=== PATIENT | female | born 1940 | race Caucasian/White ===

== ENCOUNTER 2018-03-06 12:51 | Inpatient (IN) | payer MEDICARE, BC ==
[2018-03-06] MEDS ORDERED: Nitroglycerin 0.4 MG TAB (25 Tab Bottle) SL PRN (13:19)
[2018-03-06 13:47] LABS: #Eosinphils 0.1 thou/uL (0.0-0.7); #Monocytes 0.5 thou/uL (0.11-0.59); %Basophils 0.1 % (0.0-1.0); %Eosinophils 0.7 % (0.0-10.0); %Lymphocytes 13.6 % (21.0-51.0); %Monocytes 6.1 % (0.0-10.0); %Neutrophils 79.6 % (42.0-75.0); Hemoglobin 13.8 g/dL (12.0-16.0); Mean Corpuscular HGB CONC 35.1 g/dL (32.0-36.0); Mean Corpuscular Hemoglobin 32.7 pg (27.0-31.0); Mean Corpuscular Volume 93.2 fl (81.0-99.0); Mean Platelet Volume 8.2 fL (7.4-10.4); Platelet Count 232 thou/uL (130-400); RBC Distribution Width 11.1 % (11.5-14.5); Red Blood Cell (RBC) Count 4.22 mill/uL (4.20-5.40); White Blood Cell (WBC) Count 7.6 thou/uL (4.8-10.8)
[2018-03-06 14:07] LABS: ALT (SGPT) Less than 7 U/L (8-55); AST (SGOT) 38 U/L (5-34); Albumin 4.1 g/dL (3.4-4.8); Alkaline Phosphatase 64 U/L (40-150); Anion Gap 15 mmol/L (10-20); BUN (Urea Nitrogen) 9 mg/dL (9.8-20.1); Bilirubin, Total 0.6 mg/dL (0.2-1.2); Calc. Creatinine Clearance 0 mL/min (70-130); Calcium 9.2 mg/dL (7.8-10.44); Carbon Dioxide 21 mmol/L (23-31); Chloride 93 mmol/L (98-107); Estimated GFR-MDRD 69; Globulin 2.4 g/dL (2.4-3.5); Glucose 152 mg/dL (83-110); Potassium 4.1 mmol/L (3.5-5.1); Protein, Total 6.5 g/dL (6.0-8.3); Sodium 125 mmol/L (136-145)
--- NOTE | 2018-03-06 14:43 | RAD ---
CHEST 2 VIEWS: HISTORY: Chest pain. FINDINGS: Cardiac silhouette and pulmonary vasculature are unremarkable. Mediastinum midline with aortic calci fication. No confluent airspace consolidation, pneumothorax, or pleural fluid. IMPRESSION: Atherosclerosis. No active cardiopulmonary abnormalities are otherwise demonstrated. POS: [facility]
[2018-03-06 15:25] LABS: CKMB 26.7 ng/mL (0-6.6); Troponin I 5.549 ng/mL (< 0.028)
[2018-03-06] MEDS ORDERED: Enoxaparin Sodium 60 MG/0.6 ML SYRINGE SC SCH (17:00)
[2018-03-06] MEDS ORDERED: Communication Order-Pharmacy FS SCH (20:00)
[2018-03-06] MEDS: Donepezil HCl 5 MG TAB PO SCH (20:16)
--- NOTE | 2018-03-06 21:33 | CON ---
DATE OF CONSULTATION: 03/06/2018 DATE OF ADMISSION: 03/06/2018 INDICATION FOR CONSULTATION: A 77-year-old female with elevated cardiac enzymes. HISTORY OF PRESENT ILLNESS: This very pleasant 77-year-old female, woke up this morning, having a di scomfort in both arms and the upper back between the shoulder blades. She also had some nausea assoc iated with it. She took 2 Tylenol or Aleve, it did not relieve the pain. She presented to her [facility] doctor. At the time she arrived there, she had no further pain, but she was advised to be admitte d to the hospital for further evaluation due to her risk factors of hypertension and her age as well as a history of Violette-Ramirez tear. She presented to the hospital and enzymes show a troponin I of 5 .5 with an MB of 26.7. At this time, she remains completely asymptomatic and her symptoms had actual ly resolved by the time she was seen in the primary care physician's office. Her EKG does not show a ny acute changes and she is very pleasant and comfortable and says that she is actually back to annette l. Her risk factors include hypertension. PAST MEDICAL HISTORY: Significant for hypertension, hypothyroidism, some dementia and depression. S he has had a history of Violette-Ramirez tear in the past and osteoarthritis and possible gastroesophage al reflux disease with an ulcer. SOCIAL HISTORY: She is single, but has 2 children. They are in the 50s with no heart disease. She has a partner, gentleman that she has been together for many years. She has no tobacco abuse. She h as occasional beer in the evenings. 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 FAMILY HISTORY: Noncontributory. ALLERGIES: PENICILLIN which cause her to have a rash. MEDICATIONS: Prior to admission included sertraline, Bystolic 10 mg a day, Namenda XR 28 mg daily, l evothyroxine 0.1 mg daily, donepezil 5 mg 1 q.p.m., Prevagen Extra Strength every day, lansoprazole 3 0 mg daily. At this time, she has been placed on aspirin as well as her Aricept, levothyroxine, delio ntine, Bystolic, Protonix, Zoloft, nitroglycerin p.r.n. We will also start her on DVT prophylaxis do se of Lovenox. REVIEW OF SYSTEMS: Twelve point review of systems unremarkable. She wears glasses. Otherwise, she has had one episode of syncope several years ago of uncertain etiology. Otherwise, her 12 point revi ew of system unremarkable, so was noted in the history of present illness. PHYSICAL EXAMINATION: GENERAL: Reveals a very pleasant, alert female who is in no acute distress at this time. HEENT: Shows head to be normocephalic and atraumatic. Carotid pulses are present. There were no br uits noted. There is no JVD. The thyroid is not enlarged. Oral mucosa was pink and moist. CHEST: Clear. There are no rales, rhonchi or wheezing. CARDIOVASCULAR: Exam reveals a regular rate and rhythm with a normal S1, S2. There is no S3, S4. T here were no significant murmurs, heaves, thrills, bruits or rubs noted. ABDOMEN: Soft and nontender with positive bowel sounds. No organomegaly or masses noted. Femoral p ulses are present. EXTREMITIES: Showed no clubbing, cyanosis or edema. Pedal pulses are present. NEUROLOGIC: The patient is intact. SKIN: Warm and dry. LABORATORY: EKG shows a normal sinus rhythm with decreased R-wave progression in V1 through V3, but no ST segment elevation to indicate ischemia. Her cardiac enzymes are noted above. Her chest x-ray is unremarkable. At this time, I will repeat a second set of enzymes at this time as it has already been several hours since her last troponin I was obtained. This is significantly elevated. I have s uggested to the patient that she may need to undergo a cardiac catheterization despite being asymptom atic at this time. Otherwise, I suggested she undergo a cardiac catheterization tomorrow morning as a definitive tool to evaluate for underlying coronary artery disease. Since her enzymes are more adam n just nonspecific, they are certainly specific for myocardial infarction with a troponin I of 5.5. IMPRESSION/PLAN: 1. Non-ST segment elevation myocardial infarction. We will plan for cardiac catheterization later t becki or in the morning. 2. Hyponatremia. We will leave this up to discretion of the primary service. 3. History of hypertension. This is under good control at this time. We will continue her present medications. 4. History of Violette-Ramirez tear. This does not appear to be the case at this time, but she did hav e some nausea but did not have any severe vomiting that would indicate this. Certainly, her symptoms are very suspicious for underlying coronary artery disease. We will be more than happy to continue to follow this patient with you throughout her course. She also had an echocardiogram ordered. We w ill evaluate that. 5. The decision I did discuss with her about the cardiac catheterization later today or tomorrow; an d I discussed the procedure and the risks to include bleeding, infection, possibility of myocardial i nfarction, CVA, renal insufficiency, allergic contrast reaction, even the possibility of . She understands and agrees to proceed. We will plan for tomorrow morning unless she becomes more unstabl e or the enzymes continue to increase.
[2018-03-06 23:09] LABS: CKMB 14.6 ng/mL (0-6.6); Critical Call CKMBM RESULT DECREASING; Critical Call Chem Troponin I RESULT DECREASING; Troponin I 4.591 ng/mL (< 0.028)
--- NOTE | 2018-03-06 23:55 | HP ---
DATE OF ADMISSION: 03/07/2018 CHIEF COMPLAINT: Elevated blood pressure and chest pain. HISTORY OF PRESENT ILLNESS: This is a 77-year-old female patient with a history of hypertension, dementia, hypothyroidism, history of a GI bleed who presented to my office with one day of right-sided shoulder and upper arm pain, upper back pain, nausea, and elevated blood pressure. Patient states that she has been in her usual state of health until the symptoms developed this morning as she was feeling fine last night. She had sudden onset of nausea and upper arm anterior chest and upper back pain. The symptoms resolved over time, but she presented to my office because of elevation in her blood pressure at home. In the office, her blood pressure was initially 184/66. She was given one dose of oral clonidine 0.1 mg, which brought her blood pressure down to 145/85. Her EKG in the office did reveal some flattening of her T-waves in the inferior leads. Her symptoms resolved, but she was admitted to the hospital for further evaluation. When she arrived at the floor, her labs were done and she was found to have elevation in her troponin. She is now being admitted for further evaluation and treatment for her chest pain and rule out non-ST elevation MT. PAST MEDICAL HISTORY: Hypertension, history of a gastrointestinal bleed secondary to Violette-Ramirez tear. She has been followed by Dr. Guerrero in the past , history of chronic back pain followed by Dr. Herbert, history of hypercholesterolemia, hypothyroidism. PAST SURGICAL HISTORY: Appendectomy, x3, cholecystectomy, hysterectomy, L2 through L4 laminectomy, history of a tonsillectomy, EGD in 2016 for gastric ulcers. MEDICATIONS: Include Prevagen 10 mg daily, Namenda XR 28 mg daily, sertraline 50 mg daily, levothyroxine 100 mg daily, Aricept 5 mg daily, Prevacid 30 mg daily, Bystolic 10 mg daily. She has not been on aspirin due to her history of a GI bleed. ALLERGIES: PENICILLIN and NEMBUTAL. FAMILY HISTORY: Father at 86 due to an accident. Mother at 84 due to her old age. SOCIAL HISTORY: She is . No smoking. Occasional alcohol, but trying to decrease. 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 REVIEW OF SYSTEMS: As stated per the history of present illness. General: She denies any recent fevers, chills, or recent illness. HEENT: Denies any cough, congestion, bloody noses. Cardiac: As stated per the history of present illness. She denies palpitations. Pulmonary: Denies cough or shortness of breath. Gastrointestinal: No abdominal pain, some nausea and vomiting, diarrhea, which is resolved. Again, she does have history of a Violette-Ramirez tear. Genitourinary: No dysuria or hematuria. Neurologic: History of dementia. No recent seizures, syncope. Psychiatric: History of depression, but stable on sertraline. PHYSICAL EXAMINATION: VITAL SIGNS: Temperature 98.0, pulse is 69, respirations 18, blood pressure 152 /67, pulse ox is 98% on room air. GENERAL: She is awake and alert, in no acute distress. Speech is clear. NECK: Supple. No JVD, adenopathy, or bruits. HEART: Regular rate and rhythm. LUNGS: Clear bilaterally. ABDOMEN: Soft. EXTREMITIES: With no edema. NEUROLOGIC: Cranial nerves II-XII are intact. LABORATORY DATA: EKG in the office revealed nonspecific changes. Chest x-ray showed atherosclerosis, no acute findings. White blood cell count 7600, hemoglobin and hematocrit 13.8 and 39.4, platelets are 232. Sodium 125, potassium 4.0, chloride 93, CO2 of 21, BUN and creatinine 9 and 0.89. Serum glucose of 152. AST and ALT are low. First troponin is elevated at 5.549. ASSESSMENT AND PLAN: This is a 77-year-old female with medical problems as described above and risk factors including age, hypertension, hypercholesterolemia presented to my office with complaints of atypical symptoms , but now with elevated troponin consistent with a non-ST elevation myocardial infarction. Dr. Estes has seen the patient in evaluation, is made a plan for either cardiac catheterization tonight or in the morning. 1. Hypertension. We will continue Bystolic and monitor closely. 2. Coronary artery disease. Dr. Estes already started Lovenox. 3. Hyperlipidemia. We will follow and likely started on a statin. 4. Dementia. We will continue her home meds. 5. Hyponatremia. We will monitor and recheck labs in the morning. 6. History of gastrointestinal bleed. We will continue her PPI, especially while she is on anticoagulation. CHANTAL
[2018-03-07 04:51] LABS: Anion Gap 13 mmol/L (10-20); BUN (Urea Nitrogen) 11 mg/dL (9.8-20.1); Calc. Creatinine Clearance 58 mL/min (70-130); Calcium 9.2 mg/dL (7.8-10.44); Carbon Dioxide 25 mmol/L (23-31); Chloride 96 mmol/L (98-107); Estimated GFR-MDRD 79; Glucose 90 mg/dL (83-110); Potassium 3.5 mmol/L (3.5-5.1); Sodium 130 mmol/L (136-145)
[2018-03-07] MEDS: Nebivolol HCl 5 MG TAB PO SCH (06:11)
[2018-03-07] MEDS: Levothyroxine Sodium 100 MCG TAB PO SCH (06:12)
[2018-03-07] MEDS ORDERED: Lidocaine 1% (PF) 30 ML VIAL ONE (08:09)
[2018-03-07] MEDS ORDERED: Heparin 10,000 UNITS/1 ML VIAL ONE (08:09)
[2018-03-07] MEDS ORDERED: Verapamil 5 MG/2 ML VIAL ONE (08:09)
[2018-03-07] MEDS ORDERED: Nitroglycerin 100MG/250ML BOT 250 ML ONE (08:09)
--- NOTE | 2018-03-07 08:18 | PRG ---
DATE OF SERVICE: 03/07/2018 SUBJECTIVE: The patient is feeling fine. She denies any chest pain. She does admit to some upper b ack pain. No nausea, no shortness of breath, no palpitations. Evaluation by Dr. Estes was reviewed. PHYSICAL EXAMINATION: VITAL SIGNS: Temperature 98.4, pulse of 55-59, respirations 18, blood pressure 133/63, pulse ox is 9 8% on room air. GENERAL: She is awake and alert, in no acute distress. Speech is clear. NECK: Supple. HEART: Regular rate and rhythm. LUNGS: Clear. EXTREMITIES: With no edema. LABORATORY DATA: Sodium up to 130, potassium 3.5, chloride 96, CO2 of 25, BUN and creatinine are 11 and 0.72, serum glucose is 90. Troponins #1 is 5.9, troponin #2 is 6.05, troponin #3 is 4.591. Hemo globin and hematocrit are stable at 13.0 and 36.7. X-RAY FINDINGS: Chest x-ray showed atherosclerosis, but no acute disease. ASSESSMENT AND PLAN: This is a 77-year-old female patient admitted with a non-ST elevation myocardia l infarction. Plan per Dr. Estes for cardiac catheterization this morning. 1. Coronary artery disease. I will continue beta elvis and start statin therapy. I will discuss with Dr. Estes and patient about risk of low dose aspirin due to her history of her gastrointestinal b leed. 2. History of gastrointestinal bleed. We will encourage to avoid any NSAIDs as well as avoid alcoho l due to history of gastrointestinal bleed from Violette-Ramirez tear. 3. Hypertension is stable on current regimen. We will continue Bystolic. 4. Dementia, stable. Continue outpatient management. 5. Hyponatremia is improved.
[2018-03-07 08:43] VITALS: BMI 21.2
[2018-03-07] MEDS ORDERED: Midazolam HCl 2 mg/2 ml Vial ONE ×2 (08:45→09:12)
[2018-03-07] MEDS ORDERED: Enoxaparin Sodium 60 MG/0.6 ML SYRINGE SC SCH (09:00)
[2018-03-07] MEDS ORDERED: Non-Formulary Item 1 EACH (Nebivolol Hcl [Bystolic] 10 MG) PO SCH (09:00)
[2018-03-07] MEDS ORDERED: Prevnar 13-Val Conj/PF 0.5 ML SYRINGE IM ONE (09:00)
[2018-03-07] MEDS ORDERED: Aspirin 81 mg Enteric Coated Tablet PO SCH (09:00)
[2018-03-07] MEDS ORDERED: TICAGRELOR 90 MG TABLET ONE (10:17)
[2018-03-07] MEDS ORDERED: Lisinopril 5 MG TAB PO SCH (10:45)
[2018-03-07] MEDS ORDERED: Amlodipine 5 MG TAB PO SCH (11:00)
[2018-03-07] MEDS: Donepezil HCl 5 MG TAB PO SCH (20:48)
[2018-03-07] MEDS: TICAGRELOR 90 MG TABLET PO SCH (20:48)
[2018-03-07] MEDS ORDERED: Atorvastatin Calcium 10 MG TAB PO SCH (21:00)
[2018-03-08 04:37] LABS: #Eosinphils 0.2 thou/uL (0.0-0.7); #Monocytes 0.6 thou/uL (0.11-0.59); #Neutrophils 4.3 thou/uL (1.40-6.50); %Basophils 0.5 % (0.0-1.0); %Eosinophils 3.3 % (0.0-10.0); %Monocytes 9.9 % (0.0-10.0); %Neutrophils 70.4 % (42.0-75.0); Hemoglobin 12.5 g/dL (12.0-16.0); Mean Corpuscular HGB CONC 35.8 g/dL (32.0-36.0); Mean Corpuscular Hemoglobin 32.7 pg (27.0-31.0); Mean Corpuscular Volume 91.3 fl (81.0-99.0); Mean Platelet Volume 7.9 fL (7.4-10.4); Platelet Count 188 thou/uL (130-400); RBC Distribution Width 11.1 % (11.5-14.5); Red Blood Cell (RBC) Count 3.84 mill/uL (4.20-5.40); White Blood Cell (WBC) Count 6.2 thou/uL (4.8-10.8)
[2018-03-08 05:04] LABS: ALT (SGPT) Less than 7 U/L (8-55); AST (SGOT) 22 U/L (5-34); Albumin 3.5 g/dL (3.4-4.8); Alkaline Phosphatase 51 U/L (40-150); Anion Gap 11 mmol/L (10-20); BUN (Urea Nitrogen) 6 mg/dL (9.8-20.1); Bilirubin, Total 0.8 mg/dL (0.2-1.2); Calc. Creatinine Clearance 60 mL/min (70-130); Calcium 8.7 mg/dL (7.8-10.44); Carbon Dioxide 24 mmol/L (23-31); Chloride 94 mmol/L (98-107); Estimated GFR-MDRD 86; Globulin 2.1 g/dL (2.4-3.5); Glucose 79 mg/dL (83-110); Potassium 3.2 mmol/L (3.5-5.1); Protein, Total 5.6 g/dL (6.0-8.3); Sodium 126 mmol/L (136-145)
[2018-03-08] MEDS: Levothyroxine Sodium 100 MCG TAB PO SCH (05:29)
[2018-03-08] MEDS ORDERED: Atorvastatin Calcium 10 MG TAB PO SCH (07:37)
[2018-03-08] MEDS ORDERED: Amlodipine 5 MG TAB PO SCH (09:00)
[2018-03-08] MEDS: Amlodipine 5 MG TAB PO SCH (09:13)
[2018-03-08] MEDS: Nebivolol HCl 5 MG TAB PO SCH (09:14)
[2018-03-08] MEDS: Lisinopril 5 MG TAB PO SCH (09:14)
[2018-03-08] MEDS: TICAGRELOR 90 MG TABLET PO SCH ×2 (09:14→20:14)
--- NOTE | 2018-03-08 11:31 | PRG ---
DATE OF SERVICE: 03/08/2018 SUBJECTIVE: The patient is feeling better. She walked with cardiac rehab today. Denies chest pain. Denies shortness of breath. Denies nausea. Her right shoulder and upper back pain have resolved. She states she has a good appetite. OBJECTIVE: VITAL SIGNS: Temperature 98.5, pulse of 60, respirations 17, blood pressure 129/63, pulse ox is 98% on room air. GENERAL: She is awake and alert. She is smiling, in no acute distress. HEENT: Mucosa is moist. NECK: Supple. HEART: Regular rate and rhythm. LUNGS: Clear. EXTREMITIES: With no edema. LABORATORY DATA: Sodium 126, potassium 3.2, chloride 94, CO2 of 24, BUN and creatinine are 6 and 0.6 7. AST and ALT are normal. Albumin of 3.5. ASSESSMENT AND PLAN: This is a 77-year-old female status post non-ST elevation myocardial infarction , status post stent placement to left anterior descending. 1. Coronary artery disease. Symptomatically feeling better, started on antiplatelets, statin, alrea dy on beta elvis. Further plan per Cardiology. 2. Initiating cardiac rehabilitation. 3. Hypertension, better control. 4. Dementia. We will continue her medications. 6. Hyponatremia. I will place on fluid restriction and continue to monitor.
[2018-03-08] MEDS: Donepezil HCl 5 MG TAB PO SCH (20:14)
[2018-03-08] MEDS ORDERED: Atorvastatin Calcium 40 MG TAB PO SCH (21:00)
[2018-03-09 05:18] LABS: Anion Gap 13 mmol/L (10-20); BUN (Urea Nitrogen) 13 mg/dL (9.8-20.1); Calc. Creatinine Clearance 60 mL/min (70-130); Calcium 9.3 mg/dL (7.8-10.44); Carbon Dioxide 22 mmol/L (23-31); Chloride 99 mmol/L (98-107); Estimated GFR-MDRD 84; Glucose 98 mg/dL (83-110); Potassium 3.4 mmol/L (3.5-5.1); Sodium 131 mmol/L (136-145)
[2018-03-09] MEDS: Levothyroxine Sodium 100 MCG TAB PO SCH (05:45)
[2018-03-09] MEDS: TICAGRELOR 90 MG TABLET PO SCH (08:38)
[2018-03-09] MEDS: Nebivolol HCl 5 MG TAB PO SCH (08:38)
[2018-03-09] MEDS: Amlodipine 5 MG TAB PO SCH (08:38)
[2018-03-09] MEDS: Lisinopril 5 MG TAB PO SCH (08:39)
[2018-03-09] MEDS ORDERED: Lisinopril 5 MG TAB PO SCH (09:48)
[2018-03-09] MEDS ORDERED: Lisinopril 10 MG TAB PO SCH ×3 (10:00→21:00)
--- NOTE | 2018-03-09 11:49 | PRG ---
DATE OF SERVICE: 03/09/2018 SUBJECTIVE: The patient continues to feel better. She is walking with therapy. Denies chest pain. Denies shortness of breath. Denies upper back pain or shoulder pain. She states she has a good reed etite. She wants to go home. Tolerating medications without side effects. OBJECTIVE: VITAL SIGNS: Temperature 97.6, pulse of 62-96, respirations 13, blood pressure 164/68, pulse ox is 9 6% on room air. GENERAL: She is awake and alert, in no acute distress. Speech is clear and fluent. HEENT: Mucosa is moist. NECK: Supple. No bruit. HEART: Regular rate and rhythm without murmurs. LUNGS: Clear bilaterally. ABDOMEN: Soft. EXTREMITIES: With no edema, 2+ peripheral pulses bilaterally. LABORATORY DATA: Reviewed. Sodium 131, potassium 3.4, chloride 99, CO2 of 22, BUN and creatinine 13 and 0.68. Serum glucose of 98. Cardiac enzymes reviewed. ASSESSMENT AND PLAN: This is a 77-year-old female admitted with a non-ST elevation myocardial infarc tion, now status post stent placement to left anterior descending artery. 1. Coronary artery disease, symptomatic, feeling better. Continuing Brilinta, aspirin, statin, beta elvis, MARCIA inhibitor. Further plan per Cardiology and home as per Cardiology. 2. Hypertension. I will increase lisinopril. Continue amlodipine and Bystolic as well. 3. Hyponatremia is improved with fluid restriction. I will continue to monitor as outpatient. 4. Dementia, stable. 5. Disposition arrangements being made for outpatient cardiac rehabilitation. Family is asking abou t diet and exercise. I had discussion about that as well as continuing outpatient cardiac rehab for further follow up. Home when okay with Cardiology.
[2018-03-09 12:32] VITALS: TEMP 97.5
[2018-03-09 14:10] VITALS: BP 153/66
[2018-03-10] MEDS ORDERED: Lisinopril 10 MG TAB PO SCH (09:00)
--- NOTE | 2018-03-10 12:47 | EKG ---
Test Reason : Blood Pressure : / mmHG Vent. Rate : 056 BPM Atrial Rate : 056 BPM P-R Int : 246 ms QRS Dur : 074 ms QT Int : 628 ms P-R-T Axes : 044 007 147 degrees QTc Int : 606 ms Sinus bradycardia with 1st degree A-V block Possible Inferior infarct , age undetermined T wave abnormality, consider anterolateral ischemia Prolonged QT Abnormal ECG When compared with ECG of 07-MAR-2018 11:47, (Unconfirmed) T wave inversion now evident in Lateral leads QT has lengthened Confirmed by SARAH WILLSON M.D. ([id number]), news videotape editor PINKY COSTELLO ([id number]) on 03/10/2018 12:46:56 PM Referred By: [place] Confirmed By:SARAH WILLSON M.D.
== END 2018-03-09 14:11 | disposition home or self-care (01) | DRG 247 ==
LOC: 2NO 12:51
PROVIDERS: ADMIT Family Medicine; ATTEND Family Medicine
PROC: 027034Z Dilation of Coronary Artery, One Artery with Drug-eluting Intraluminal Device, Percutaneous Approach (ICD-10-PCS; principal; 2018-03-07)
PROC: 4A023N7 Measurement of Cardiac Sampling and Pressure, Left Heart, Percutaneous Approach (ICD-10-PCS; 2018-03-07)
PROC: B2111ZZ Fluoroscopy of Multiple Coronary Arteries using Low Osmolar Contrast (ICD-10-PCS; 2018-03-07)
DX: I21.4 Non-ST elevation (NSTEMI) myocardial infarction (principal); E87.1 Hypo-osmolality and hyponatremia; I25.10 Atherosclerotic heart disease of native coronary artery without angina pectoris; I10 Essential (primary) hypertension; F03.90 Unspecified dementia, unspecified severity, without behavioral disturbance, psychotic disturbance, mood disturbance, and anxiety; E03.9 Hypothyroidism, unspecified; E78.00 Pure hypercholesterolemia, unspecified; E78.5 Hyperlipidemia, unspecified; Z90.49 Acquired absence of other specified parts of digestive tract; Z90.710 Acquired absence of both cervix and uterus; Z79.899 Other long term (current) drug therapy
CPT/HCPCS: 36415; 71046; 80048; 80053; 82553; 84484; 85014; 85018; 85025; 85347; 92928; 93005; 93010; 93306; 93458; 93798; 94760; 99152; 99153; C1769; C1874; C1887; C9600; J1644; J1650; J2001; J2250

== ENCOUNTER 2018-11-10 13:42 | Inpatient (IN) | payer MEDICARE, BC ==
[2018-11-10] MEDS ORDERED: Aspirin Chewable 81 MG TAB ONE (14:17)
[2018-11-10] MEDS ORDERED: Nitroglycerin 2% Ointment 1 INCH/1 GM Packet ONE (14:17)
[2018-11-10 14:23] LABS: #Basophils 0.1 thou/uL (0.0-0.2); #Eosinphils 0.2 thou/uL (0.0-0.7); #Monocytes 0.6 thou/uL (0.11-0.59); #Neutrophils 4.1 thou/uL (1.40-6.50); %Basophils 1.2 % (0.0-1.0); %Eosinophils 3.3 % (0.0-10.0); %Lymphocytes 17.3 % (21.0-51.0); %Monocytes 9.4 % (0.0-10.0); %Neutrophils 68.8 % (42.0-75.0); Hemoglobin 14.1 g/dL (12.0-16.0); Mean Corpuscular HGB CONC 35.5 g/dL (32.0-36.0); Mean Corpuscular Hemoglobin 32.3 pg (27.0-31.0); Mean Corpuscular Volume 91.1 fL (78.0-98.0); Mean Platelet Volume 9.3 fL (7.4-10.4); Platelet Count 238 thou/uL (130-400); RBC Distribution Width 10.8 % (11.5-14.5); Red Blood Cell (RBC) Count 4.36 mill/uL (4.20-5.40)
--- NOTE | 2018-11-10 14:23 | RAD ---
SINGLE VIEW OF THE CHEST: Comparison: 10-27-15 History: Chest pain. FINDINGS: Single view of the chest shows a normal sized cardiomediastinal silhouette. There is no evidence of c onsolidation, mass, or pleural effusion. The bones are unremarkable. IMPRESSION: No evidence of acute cardiopulmonary disease. POS: [facility]
[2018-11-10 14:39] LABS: ALT (SGPT) 8 U/L (8-55); AST (SGOT) 25 U/L (5-34); Albumin 4.4 g/dL (3.4-4.8); Alkaline Phosphatase 90 U/L (40-150); Anion Gap 16 mmol/L (10-20); BUN (Urea Nitrogen) 9 mg/dL (9.8-20.1); Bilirubin, Total 0.4 mg/dL (0.2-1.2); CK (CPK) 57 U/L (29-168); Calc. Creatinine Clearance 0 mL/min (70-130); Calcium 9.2 mg/dL (7.8-10.44); Carbon Dioxide 22 mmol/L (23-31); Chloride 94 mmol/L (98-107); Estimated GFR-MDRD 49; Globulin 2.8 g/dL (2.4-3.5); Glucose 116 mg/dL (83-110); Lipase 28 U/L (8-78); Potassium 4.1 mmol/L (3.5-5.1); Protein, Total 7.2 g/dL (6.0-8.3); Sodium 128 mmol/L (136-145)
[2018-11-10] MEDS ORDERED: Acetaminophen 325 MG TAB PO PRN (22:01)
[2018-11-10] MEDS ORDERED: Ondansetron PF 4 MG/2 ML Vial IVP PRN (22:01)
[2018-11-10] MEDS ORDERED: Ondansetron ODT 4 MG TAB SL PRN (22:01)
[2018-11-10] MEDS ORDERED: Nitroglycerin 2% Ointment 1 INCH/1 GM Packet TOP SCH (22:15)
[2018-11-10 22:36] VITALS: BMI 23.8
[2018-11-10 22:45] LABS: Troponin I Less than 0.010 ng/mL (< 0.028)
[2018-11-10] MEDS ORDERED: cloNIDine 0.1 MG TAB PO PRN (22:55)
[2018-11-10] MEDS ORDERED: Nitroglycerin 0.4 MG TAB (25 Tab Bottle) SL PRN (22:56)
[2018-11-10] MEDS ORDERED: Atorvastatin Calcium 40 MG TAB PO SCH (23:00)
[2018-11-10] MEDS ORDERED: Donepezil HCl 5 MG TAB PO SCH (23:00)
[2018-11-11] MEDS ORDERED: Labetalol HCl 100 MG/20 ML VIAL SLOW IVP PRN (00:06)
[2018-11-11] MEDS ORDERED: Clopidogrel Bisulfate 75 MG TAB PO SCH (00:15)
[2018-11-11] MEDS ORDERED: Nebivolol HCl 5 MG TAB PO SCH (00:15)
[2018-11-11 01:46] LABS: Troponin I Less than 0.010 ng/mL (< 0.028)
[2018-11-11] MEDS: Levothyroxine Sodium 100 MCG TAB PO SCH (05:07)
[2018-11-11] MEDS: Nitroglycerin 2% Ointment 1 INCH/1 GM Packet TOP SCH ×3 (05:30→21:17)
[2018-11-11 09:04] LABS: Anion Gap 12 mmol/L (10-20); BUN (Urea Nitrogen) 8 mg/dL (9.8-20.1); Calc. Creatinine Clearance 49 mL/min (70-130); Calcium 9.4 mg/dL (7.8-10.44); Carbon Dioxide 23 mmol/L (23-31); Chloride 95 mmol/L (98-107); Estimated GFR-MDRD 65; Glucose 91 mg/dL (83-110); Sodium 126 mmol/L (136-145)
[2018-11-11 09:26] LABS: Thyroid Stimulating Hormone 1.5144 uIU/mL (0.35-4.94)
[2018-11-11] MEDS: Losartan 25 MG TAB PO SCH (09:37)
[2018-11-11] MEDS: Nebivolol HCl 5 MG TAB PO SCH (09:38)
--- NOTE | 2018-11-11 11:53 | CON ---
DATE OF CONSULTATION: 11/11/2018 INDICATION FOR CONSULTATION: A 78-year-old female with history of coronary artery disease, status post angioplasty and stent placement to the distal left anterior descending artery in February of last year. She had single-vessel coronary artery disease. She had an echocardiogram, which showed a normal ejection fraction with mild tricuspid and aortic valve regurgitation. She had chest pain yesterday and was admitted to the hospital. Cardiac enzymes are unremarkable. EKG did not show any ischemic changes. The patient's cardiac enzymes are negative and EKG did not show any ischemic changes, but then she did develop several hours of atrial fibrillation last night. Her discomfort at home was somewhat atypical. She just started complaining of chest pain, which she has tried more of a pressure type sensation, which is not the same as her pain previously when she had the left anterior descending artery stenosis and stent placement. Previously, she had arm pain and jaw pain and also back pain. At this time, she does have some pressure across her chest area. By the time, she arrived in the hospital, pretty much pain had already resolved. At this time, she is very comfortable and she has converted back to a sinus rhythm. PAST MEDICAL HISTORY: Significant for coronary disease as noted above with angioplasty stent placed in February 2018. She also has hypertension and hypercholesterolemia. She has suffered a non-ST segment elevation myocardial infarction in February prior to undergoing stent placement. She has mild dementia. She has had a history of a Violette-Ramirez tear. She has had 3 C-sections, cholecystectomy, and hysterectomy. SOCIAL HISTORY: She lives with her . She had 3 children, 1 who . She has no tobacco use. She has occasional alcohol. She drinks about 1 beer a day. She does drink a significant amount of coffee with likely 2 cups of coffee during the day and also drinks some increased amounts of fluid. ALLERGIES: SHE HAS ALLERGIES TO PENICILLIN. ALSO, SHE HAS SOME INTOLERANCE OF NIACIN AND NEOMYCIN. REVIEW OF SYSTEMS: A 12-point review of systems unremarkable except what is noted in the history of present illness. MEDICATIONS: Her present medications prior to admission included; 1. Donepezil. 2. Bystolic. 3. Esomeprazole. 4. Plavix. 5. Nitroglycerin as needed. 6. Amlodipine. 7. Amantadine. 8. Memantine. 9. Sertraline. 10. Atorvastatin. 11. Levothyroxine. 12. Losartan. 13. Sertraline. 14. Lisinopril. 15. Aspirin 81 mg a day. 16. Plavix 75 mg a day. PHYSICAL EXAMINATION: GENERAL: Reveals a well-developed, well-nourished female, who is in no acute distress at this time. She denies any chest pain or shortness of breath. VITAL SIGNS: Blood pressure is 101/65, earlier or late last night was 165/94. She is afebrile. Heart rate at this time is 63 and shows a normal sinus rhythm. When she did have atrial fibrillation, heart rate was up to the 110s. Actually earlier this morning, was almost around 150 the heart rate, but was irregular, appeared to be atrial fibrillation. Respiratory rate is 16 and O2 saturation 95%. HEENT: Shows the head to be normocephalic and atraumatic. Carotid pulses are present. I did not hear any significant bruits. CHEST: Clear to auscultation without rales, rhonchi, or wheezing. CARDIOVASCULAR: At this time reveals a regular rate and rhythm with normal S1 and S2. There is no S3 or S4. There were no significant murmurs, heaves, thrills, bruits, or rubs. ABDOMEN: Soft and nontender. Positive bowel sounds are present. EXTREMITIES: Showed no clubbing, cyanosis, or edema. Pedal pulses are present. NEUROLOGIC: The patient does have some mild degree of dementia, but otherwise has no significant neurological deficits. SKIN: Warm and dry. IMAGING: EKG this time shows a sinus rhythm without any acute changes. Previous EKG did show evidence of atrial fibrillation with rapid ventricular response. LABORATORY DATA: Sodium is 126, potassium 4.0, chloride is 95, CO2 of 23, BUN was 8, creatinine is 0.85, and blood sugar was 91. Thyroid function appears to be normal. Cardiac enzymes are unremarkable, they were negative. WBC of 6, hemoglobin 14.1, and platelet count 238,000. IMPRESSION AND PLAN: 1. Elderly female with history of coronary artery disease with episode of chest discomfort with no EKG changes to indicate ischemia and enzymes are negative. The pain resolved rather quickly at home within an hour. She is not taking nitroglycerin and there do not appear to be any ischemic changes noted at this time. We will continue her present medications. I do not believe this is coronary artery disease related at this time. 2. Atrial fibrillation. This is a new finding for her. I would suggest we start low dose of flecainide to see if we can control her heart rate, does seem to control the atrial fibrillation. When she is at rest, her heart rates are in the 60s, we are somewhat hesitant to increase beta blockers or add sotalol. If she is unable to tolerate the flecainide, then we could consider Multaq. If these are not successful, then the only other option would be amiodarone. 3. Hyponatremia, uncertain etiology. She is not on diuretics. We suggest that she slightly liberalize her salt intake since she has a normal ejection fraction and no evidence of congestive heart failure in the past. 4. Hypercholesterolemia. She will continue her medications for the cholesterol. 5. History of dementia. This is under well control. She stays at home with family members. We are more than happy to continue to follow the patient with you, but she should be observed in the hospital for at least another 2 days after starting the flecainide given her age to rule out evidence of further more significant arrhythmias. ADDENDUM: We started Ms. Garcia on flecainide 25 mg b.i.d. to see if we could suppress her atrial fibrillation. However, if she is taking other medications, which would prolong her QT, which could possibly cause her to have some ventricular tachycardia and ventricular fibrillation. She is taking Namenda, which also can prolong the QT. I will try to start her on just diltiazem in addition to her beta blockers and see whether or not she will tolerate this medication and this may be enough just to suppress the atrial fibrillation. If not, we may need to ask for the assistance of the jet dyeing machine tender to see how we can best manage her atrial fibrillation. If she remains stable, she could be discharged home tomorrow, but most likely will need to have an event monitor to see whether or not she has other episodes of atrial fibrillation. Job ID: [id number]
--- NOTE | 2018-11-11 12:04 | HP ---
CHIEF COMPLAINT: Chest pain and palpitations. HISTORY OF PRESENT ILLNESS: This is a 78-year-old female patient with a known history of coronary artery disease, status post LAD stent placement in February of 2018, who presented to the emergency department last night with complaints of sudden onset of chest tightness. The patient states that she was in her usual state of health when she was walking around her house and developed tightness and nausea. She denied palpitations. Denied radiation of the pain. Denied any lightheadedness or near syncope. She states that the pain resolved when she presented to the emergency department. She was admitted to telemetry last night. Last night at about 11:00 p.m., she had episode of her heart racing. She states that she did not have any symptoms during that episode. On her monitoring, she did reveal atrial fibrillation, atrial flutter. The symptoms resolved spontaneously. She is now symptom free. Denies chest pain. Denies shortness of breath. She is now being admitted for further evaluation and treatment. PAST MEDICAL HISTORY: Hypertension, hyperlipidemia, hypothyroidism, dementia, history of gastric ulcer with GI bleed in 2016, and history of coronary artery disease with cardiac catheterization in February of 2018 with drug-eluting stent placement in LAD at that time. MEDICATIONS: Include; 1. Bystolic 10 mg daily. 2. Lisinopril 10 mg daily. 3. Plavix 75 mg daily. 4. Namenda 5 mg daily. 5. Sertraline 50 mg daily. 6. Protonix 30 mg daily. 7. Aspirin 81 mg daily. 8. Atorvastatin 40 mg daily. 9. Aricept 5 mg daily. ALLERGIES: TO PENICILLIN, PENTOBARBITAL, AND NEOMYCIN. PAST SURGICAL HISTORY: Appendectomy, x3, cholecystectomy, hysterectomy, L2 through L5 laminectomy, tonsillectomy, EGD in 2016 for gastric ulcers and GI bleed, and cardiac catheterization with LAD stent placement in 2018. FAMILY HISTORY: Father at 86 due to an accident. Mother at 84 due to natural causes. SOCIAL HISTORY: She is . No smoking. Regular alcohol of beer 2 to 3 per day. Homemaker. REVIEW OF SYSTEMS: As per the history of present illness. GENERAL: She denies any recent fevers, chills, or recent illness. HEENT: Denies headache, visual or hearing changes. Denies cough, congestion. CARDIAC: As per the history of present illness. PULMONARY: Denies cough or shortness of breath. GASTROINTESTINAL: No recent episode of abdominal pain, nausea, vomiting, or diarrhea. GENITOURINARY: No dysuria or hematuria. NEUROLOGIC: History of dementia. No seizure or syncope. PSYCHIATRIC: History of depression, but appears to be stable on her medications. PHYSICAL EXAMINATION: VITAL SIGNS: Temperature 97.8; pulse of 106, last night it was up to 116; respirations 15; blood pressure 101/65; and pulse ox is 95% on room air. GENERAL: She is awake and alert. Speech is clear. HEENT: Mucosa is moist. NECK: Supple. No thyromegaly. HEART: Regular rate and rhythm with 2/6 systolic ejection murmur. LUNGS: Clear. ABDOMEN: Soft, nontender, and nondistended. Positive bowel sounds in all 4 quadrants. EXTREMITIES: No clubbing, cyanosis, or edema. 2+ peripheral pulses bilaterally. LABORATORY DATA: White blood cell count 6.0, hemoglobin and hematocrit of 14.1 and 39.7, and platelets of 238. Sodium 128, potassium 4.1, chloride 94, CO2 of 22, BUN and creatinine of 9 and 1.09 with a GFR of 49, and serum glucose of 116. AST and ALT are normal. Troponin is negative x3. IMAGING DATA: Chest x-ray revealed no active disease. EKG last night in the emergency department revealed sinus rhythm with first-degree AV block, Q-waves in inferior leads. Last night at 11:00 p.m., it revealed atrial fibrillation with rapid ventricular response. ASSESSMENT AND PLAN: This is a 78-year-old female with known history of hypertension, hyperlipidemia, coronary artery disease, now with chest pain and episode of atrial fibrillation with rapid ventricular response. 1. Atrial fibrillation with rapid ventricular response. We will continue beta-elvis. She has converted back to normal sinus rhythm. We will consult Cardiology for further evaluation. We will continue anticoagulation with Plavix and aspirin at this time. May consider EP consult. 2. Coronary artery disease with episode of chest pain. Further evaluation by Cardiology. 3. Hypertension, appears to be stable at this point. At this point, we will continue to monitor. 4. Hyponatremia, likely secondary to excess beer intake. We will continue to monitor. Consider a saline drip if worsens. 5. Dementia. We will continue her home medications. Job ID: [id number]
[2018-11-11] MEDS ORDERED: Donepezil HCl 5 MG TAB PO SCH (21:00)
[2018-11-11] MEDS ORDERED: Atorvastatin Calcium 40 MG TAB PO SCH (21:00)
[2018-11-11] MEDS ORDERED: Diltiazem HCl SR 60 mg Capsule PO SCH (21:00)
[2018-11-12] MEDS: Nitroglycerin 2% Ointment 1 INCH/1 GM Packet TOP SCH ×2 (07:13→15:48)
[2018-11-12] MEDS: Levothyroxine Sodium 100 MCG TAB PO SCH (07:13)
[2018-11-12] MEDS: Losartan 25 MG TAB PO SCH (08:10)
[2018-11-12] MEDS: Nebivolol HCl 5 MG TAB PO SCH (08:11)
--- NOTE | 2018-11-12 08:31 | PRG ---
DATE OF SERVICE: 11/12/2018 SUBJECTIVE: The patient is feeling better. She denies chest pain or shortness of breath. She is ambulating in the room without difficulty. No tremors. No jitteriness. Denies anxiety. She just wants to go home. OBJECTIVE: VITAL SIGNS: Temperature 97.8, pulse of 69, respirations 13, blood pressure 151/67, and pulse ox 97% on room air. Telemetry, normal sinus rhythm. GENERAL: She is awake and alert, in no acute distress. Speech is clear. HEENT: Mucosa is moist. NECK: Supple. HEART: Regular rate and rhythm. LUNGS: Clear. ABDOMEN: Soft. EXTREMITIES: With no edema. LABORATORY DATA: Reviewed. Thyroid function is normal. Chemistry is pending. Cardiac enzymes were negative. ASSESSMENT AND PLAN: This is a 78-year-old female patient with known coronary artery disease, admitted with chest pain. 1. Chest pain. She ruled out for a myocardial infarction, possibly secondary to either musculoskeletal origin or episode of her atrial fibrillation with rapid ventricular response while she was at home. 2. New-onset atrial fibrillation, rate controlled with beta-elvis and calcium-channel elvis. She is on anticoagulation at home. Further plan per Cardiology. Likely will need an event monitor, now that she is rate controlled, to watch for further episodes of paroxysmal atrial fibrillation. Further plan per Dr. Estes. 3. Hyponatremia. Rechecking chemistry this morning. 4. Disposition: Hopefully home later today per Cardiology with close followup for her new-onset atrial fibrillation. Job ID: [id number]
[2018-11-12] MEDS ORDERED: Aspirin Chewable 81 MG TAB PO SCH (09:00)
[2018-11-12] MEDS ORDERED: Clopidogrel Bisulfate 75 MG TAB PO SCH (09:00)
[2018-11-12 09:16] LABS: Anion Gap 12 mmol/L (10-20); BUN (Urea Nitrogen) 9 mg/dL (9.8-20.1); Calc. Creatinine Clearance 54 mL/min (70-130); Calcium 9.1 mg/dL (7.8-10.44); Carbon Dioxide 27 mmol/L (23-31); Chloride 96 mmol/L (98-107); Estimated GFR-MDRD 73; Glucose 82 mg/dL (83-110); Potassium 3.7 mmol/L (3.5-5.1); Sodium 131 mmol/L (136-145)
--- NOTE | 2018-11-12 11:23 | PDOC.CTH ---
Cardiology Progress Note - Subjective The pt seen and examined. No overnight events. No cardiac complaints. - Objective Vital Signs Temp Pulse Resp BP Pulse Ox 11/12/18 07:19 97.6 F 55 L 15 153/70 H 97 11/12/18 04:00 97.8 F 69 13 151/67 H 97 Weight 122 lb 11/11/18 11/12/18 11/13/18 06:59 06:59 06:59 Intake Total 360 1200 Output Total 450 600 Balance -90 600 - Physical Examination General/Neuro: alert & oriented x3 Neck: no JVD present Lungs: CTA Heart: RRR Abdomen: soft Extremities: other: (No edema) - Telemetry Telemetry Rhythm: SR - Labs Result Diagrams: 11/10/18 14:14 11/12/18 08:17 Troponin/CKMB Troponin I Less than 0.010 ng/mL (< 0.028) 11/11/18 01:02 - Assessment/Plan 1. New On-set Afib with RVR - on SR; Stop Flecainide due to QT prolongation and change to Diltiazem 60mg BID. On ASA 81mg qd. 2. CAD with stent to distal LAD in 02/2018 - stable; On Bblocker, ASA, Statin 3. HTN - stable 4. Hyperlipidemia - on Statin 5. Mild dementia - 6. Hyponatremia - improving MAR reviewed * From Cardiac standpoint, the pt is stable to d/c home. 3wk Heart EVR monitor will be sent to her address. The pt will f/u after the EVR done. Pt. seen and eval. by me. i agree with the A/P by the PHYSICIAN EXECUTIVE. chest clear. RRR. Review of Systems - Review of Systems Constitutional: reports: no symptoms reported EENTM: reports: no symptoms reported Respiratory: reports: no symptoms reported Cardiac (ROS): reports: no symptoms reported ABD/GI: reports: no symptoms reported : reports: no symptoms reported Musculoskeletal: reports: no symptoms reported Skin: reports: no symptoms reported
[2018-11-12 16:03] VITALS: BP 140/65; TEMP 98.3
--- NOTE | 2018-11-13 10:32 | DIS ---
DATE OF ADMISSION: 11/11/2018 DATE OF DISCHARGE: 11/12/2018 ADMISSION DIAGNOSIS: Chest pain, rule out myocardial infarction. DISCHARGE DIAGNOSIS: New-onset atrial fibrillation with rapid ventricular response. OTHER DIAGNOSES: 1. Dementia. 2. Hypertension. 3. Hypothyroidism. 4. History of gastrointestinal bleed. CONSULTATIONS: Dr. Estes for Cardiology. PROCEDURES: Telemetry monitoring, rule out DE protocol. HOSPITAL COURSE: This is a 78-year-old female patient with a known history of coronary artery disease, status post stent placement in 2018, who presented to the emergency department with onset of chest tightness and chest pressure. She eventually ruled out for an DE with negative cardiac enzymes. Her pain resolved. At the night of her admission, she developed an episode of tachyarrhythmia with a heart rate in the 130s and 140s. Telemetry revealed atrial fibrillation with rapid ventricular response. The episode resolved with beta-blockade. She was seen by Dr. Estes for evaluation. She recommended continuing anticoagulation and treatment for rate control as she initially considered flecainide, but discontinued it due to the increased risk of prolonged QT interval with flecainide along with her Namenda. She started her on oral diltiazem and the patient tolerated it. She did not have any other episodes of atrial fibrillation, and the patient was stable for discharge with close followup. On admission, she was also found to be hyponatremic due to her regular beer intake. Her sodium increased to 131 with fluid restriction. She was instructed to discontinue her fluid intake and she was discharged home in good condition. DISCHARGE PHYSICAL EXAMINATION: VITAL SIGNS: Temperature 98.3, pulse of 55 to 56, respirations 16, blood pressure 140/65, and pulse ox 94% to 97% on room air. GENERAL: She is awake and alert. No acute distress. Speech is clear. NECK: Supple. HEART: Regular rate and rhythm. LUNGS: Clear. ABDOMEN: Soft. EXTREMITIES: With no edema. LABORATORY DATA: Reviewed from admission. DISCHARGE MEDICATIONS: Include; 1. Aspirin 81 mg daily. 2. Lipitor 40 mg daily. 3. Diltiazem 60 mg b.i.d. 4. Pantoprazole 40 mg daily. 5. Levothyroxine 100 mcg daily. 6. Bystolic 10 mg daily. 7. Aricept 5 mg at bedtime. 8. Atorvastatin 40 mg daily. 9. Namenda 28 mg daily. 10. Plavix 75 mg daily. 11. Losartan 25 mg daily. 12. Nitroglycerin p.r.n. FOLLOWUP INSTRUCTIONS: The patient to have event monitor delivered to her from Cardiology with close followup with Cardiology and possible electrophysiology if symptoms did not resolve. Job ID: [id number]
== END 2018-11-12 17:07 | disposition home or self-care (01) | DRG 309 ==
LOC: SCSER 13:42 → 2SW 21:25 → OBSVTOIN 11-11 07:24
PROVIDERS: ADMIT Family Medicine; ATTEND Family Medicine
DX: I48.91 Unspecified atrial fibrillation (principal); E87.1 Hypo-osmolality and hyponatremia; I10 Essential (primary) hypertension; E03.9 Hypothyroidism, unspecified; I25.10 Atherosclerotic heart disease of native coronary artery without angina pectoris; E78.5 Hyperlipidemia, unspecified; F03.90 Unspecified dementia, unspecified severity, without behavioral disturbance, psychotic disturbance, mood disturbance, and anxiety; Z90.89 Acquired absence of other organs; Z90.49 Acquired absence of other specified parts of digestive tract; Z90.710 Acquired absence of both cervix and uterus; Z98.890 Other specified postprocedural states; Z95.5 Presence of coronary angioplasty implant and graft; Z88.0 Allergy status to penicillin; Z88.8 Allergy status to other drugs, medicaments and biological substances; Z79.02 Long term (current) use of antithrombotics/antiplatelets; Z79.82 Long term (current) use of aspirin
CPT/HCPCS: 36415; 71045; 80048; 80053; 82550; 83690; 84436; 84443; 84481; 84484; 85025; 93005; 93010

== ENCOUNTER 2021-03-18 14:06 | Inpatient (IN) | payer MEDICARE, BC ==
[2021-03-18 14:54] LABS: #Basophils 0.1 thou/uL (0.0-0.2); #Eosinphils 0.2 thou/uL (0.0-0.7); #Lymphocytes 1.1 thou/uL (1.20-3.40); #Monocytes 0.7 thou/uL (0.11-0.59); #Neutrophils 5.1 thou/uL (1.40-6.50); %Basophils 0.8 % (0.0-1.0); %Eosinophils 2.4 % (0.0-10.0); %Lymphocytes 15.2 % (21.0-51.0); %Monocytes 9.8 % (0.0-10.0); %Neutrophils 71.9 % (42.0-75.0); Hemoglobin 13.8 g/dL (12.0-16.0); Mean Corpuscular HGB CONC 35.8 g/dL (32.0-36.0); Mean Corpuscular Hemoglobin 33.9 pg (27.0-31.0); Mean Corpuscular Volume 94.7 fL (78.0-98.0); Platelet Count 225 thou/uL (130-400); RBC Distribution Width 11.2 % (11.5-14.5); Red Blood Cell (RBC) Count 4.06 mill/uL (4.20-5.40); White Blood Cell (WBC) Count 7.1 thou/uL (4.8-10.8)
[2021-03-18 15:12] LABS: ALT (SGPT) Less than 7 U/L (8-55); AST (SGOT) 16 U/L (5-34); Albumin 3.8 g/dL (3.4-4.8); Alkaline Phosphatase 81 U/L (40-110); Anion Gap 17 mmol/L (10-20); BUN (Urea Nitrogen) 8 mg/dL (9.8-20.1); Bilirubin, Total 0.4 mg/dL (0.2-1.2); Calc. Creatinine Clearance 0 mL/min (70-130); Calcium 8.7 mg/dL (7.8-10.44); Carbon Dioxide 18 mmol/L (23-31); Chloride 95 mmol/L (98-107); Globulin 2.5 g/dL (2.4-3.5); Glucose 131 mg/dL (83-110); Potassium 3.5 mmol/L (3.5-5.1); Protein, Total 6.3 g/dL (5.8-8.1); Sodium 126 mmol/L (136-145)
[2021-03-18 15:17] LABS: Troponin I Less than 0.010 ng/mL (< 0.028)
[2021-03-18 19:44] LABS: Bilirubin Negative (Negative); Blood, Urine Negative (Negative); Glucose, Urine (Dipstick) Normal (Negative); Ketone, Urine Negative (Negative); Leukocyte 500 Leu/uL (Negative); Nitrite Negative (Negative); Protein, Urine (Dipstick) 30 mg/dL (Neg-Trace); Urobilinogen Normal mg/dL (Less than 2); WBC/HPF Greater than 50 HPF (0-3)
[2021-03-18 19:53] LABS: Bacteria/HPF 1+ HPF (None Seen); Clarity Cloudy (Clear); Renal Epithelial 0-3 HPF (None Seen); Transitional Epithelial 0-3 HPF (None Seen)
[2021-03-18 19:54] LABS: Urine Culture Reflex No No
[2021-03-18] MEDS ORDERED: Ondansetron PF 4 MG/2 ML Vial IVP PRN (21:40)
[2021-03-18] MEDS ORDERED: cloNIDine 0.1 MG TAB PO PRN (21:40)
[2021-03-18] MEDS ORDERED: Guaifenesin DM 100-10/5 ML UDCUP PO PRN (21:40)
[2021-03-18] MEDS ORDERED: Labetalol HCl 100 MG/20 ML VIAL SLOW IVP PRN (21:40)
[2021-03-18] MEDS ORDERED: Acetaminophen 325 MG TAB PO PRN (21:40)
[2021-03-18] MEDS ORDERED: Promethazine HCl 12.5 MG in Sodium Chloride 0.9% 50 ML IVPB PRN (21:40)
[2021-03-18] MEDS ORDERED: Melatonin 3 MG TAB PO PRN (21:40)
[2021-03-18] MEDS ORDERED: Electrolyte Replacement Protocol 1 EACH FS SCH (21:45)
[2021-03-18 22:20] LABS: Troponin I Less than 0.010 ng/mL (< 0.028)
[2021-03-18 22:53] VITALS: BMI 23.1
[2021-03-18] MEDS: Sodium Chloride 0.9% 1,000 ML IV SCH (23:32)
[2021-03-19 01:49] LABS: Troponin I Less than 0.010 ng/mL (< 0.028)
[2021-03-19 05:29] LABS: #Eosinphils 0.1 thou/uL (0.0-0.7); #Lymphocytes 1.1 thou/uL (1.20-3.40); #Monocytes 0.5 thou/uL (0.11-0.59); %Basophils 0.5 % (0.0-1.0); %Eosinophils 3.1 % (0.0-10.0); %Lymphocytes 22.3 % (21.0-51.0); %Monocytes 10.4 % (0.0-10.0); %Neutrophils 63.7 % (42.0-75.0); Hemoglobin 11.8 g/dL (12.0-16.0); Mean Corpuscular Volume 94.5 fL (78.0-98.0); Mean Platelet Volume 7.9 fL (7.4-10.4); Platelet Count 181 thou/uL (130-400); RBC Distribution Width 11.1 % (11.5-14.5); Red Blood Cell (RBC) Count 3.48 mill/uL (4.20-5.40); White Blood Cell (WBC) Count 4.7 thou/uL (4.8-10.8)
[2021-03-19 05:52] LABS: Anion Gap 11 mmol/L (10-20); BUN (Urea Nitrogen) 8 mg/dL (9.8-20.1); Calc. Creatinine Clearance 52 mL/min (70-130); Calcium 8.5 mg/dL (7.8-10.44); Carbon Dioxide 25 mmol/L (23-31); Chloride 98 mmol/L (98-107); Glucose 86 mg/dL (83-110); Magnesium 1.7 mg/dL (1.6-2.6); Potassium 3.8 mmol/L (3.5-5.1); Sodium 130 mmol/L (136-145)
[2021-03-19] MEDS: cefTRIAXone\\ROCEPHIN 1 GM in Sodium Chloride 0.9% 100 ML IVPB SCH (06:05)
[2021-03-19] MEDS ORDERED: Magnesium 2 GM/50 ML 2 GM in Premix Bag 1 BAG IVPB SCH (06:30)
[2021-03-19] MEDS: Heparin 5,000 UNITS/ML VIAL SC SCH ×2 (08:12→20:41)
[2021-03-19] MEDS: Polyethylene Glycol 3350 17 GM Packet PO SCH (08:12)
[2021-03-19] MEDS: Famotidine 20 MG TAB PO SCH ×2 (08:13→20:42)
[2021-03-19] MEDS: Sodium Chloride 0.9% 1,000 ML IV SCH ×2 (08:45→14:13)
[2021-03-19] MEDS ORDERED: Losartan 25 MG TAB PO SCH (17:10)
[2021-03-19] MEDS: hydrALAZINE 20 MG/ML VIAL SLOW IVP PRN (18:31)
[2021-03-19] MEDS: Donepezil HCl 5 MG TAB PO SCH (20:42)
[2021-03-19] MEDS: Atorvastatin Calcium 20 MG TAB PO SCH (20:42)
[2021-03-19] MEDS: Aspirin Chewable 81 MG TAB PO SCH (20:42)
[2021-03-20] MEDS: Sodium Chloride 0.9% 1,000 ML IV SCH ×3 (01:38→22:26)
[2021-03-20] MEDS: hydrALAZINE 20 MG/ML VIAL SLOW IVP PRN (04:37)
[2021-03-20 05:24] LABS: #Basophils 0.1 thou/uL (0.0-0.2); #Eosinphils 0.2 thou/uL (0.0-0.7); #Lymphocytes 1.2 thou/uL (1.20-3.40); #Monocytes 0.6 thou/uL (0.11-0.59); #Neutrophils 2.9 thou/uL (1.40-6.50); %Basophils 1.6 % (0.0-1.0); %Eosinophils 4.5 % (0.0-10.0); %Lymphocytes 23.4 % (21.0-51.0); %Monocytes 11.5 % (0.0-10.0); Mean Corpuscular HGB CONC 34.2 g/dL (32.0-36.0); Mean Corpuscular Hemoglobin 32.8 pg (27.0-31.0); Mean Corpuscular Volume 95.7 fL (78.0-98.0); Mean Platelet Volume 8.3 fL (7.4-10.4); Platelet Count 189 thou/uL (130-400); RBC Distribution Width 11.2 % (11.5-14.5); Red Blood Cell (RBC) Count 3.67 mill/uL (4.20-5.40); White Blood Cell (WBC) Count 4.9 thou/uL (4.8-10.8)
[2021-03-20] MEDS: Levothyroxine Sodium 100 MCG TAB PO SCH (05:27)
[2021-03-20] MEDS: cefTRIAXone\\ROCEPHIN 1 GM in Sodium Chloride 0.9% 100 ML IVPB SCH (05:42)
[2021-03-20 05:45] LABS: Anion Gap 10 mmol/L (10-20); BUN (Urea Nitrogen) 5 mg/dL (9.8-20.1); Calc. Creatinine Clearance 53 mL/min (70-130); Calcium 8.4 mg/dL (7.8-10.44); Carbon Dioxide 25 mmol/L (23-31); Chloride 99 mmol/L (98-107); Glucose 91 mg/dL (83-110); Magnesium 1.9 mg/dL (1.6-2.6); Potassium 3.4 mmol/L (3.5-5.1); Sodium 131 mmol/L (136-145)
[2021-03-20] MEDS ORDERED: Magnesium 2 GM/50 ML 2 GM in Premix Bag 1 BAG IVPB SCH (06:45)
[2021-03-20] MEDS ORDERED: Potassium Chloride 20 MEQ TAB PO SCH (06:45)
[2021-03-20] MEDS: Clopidogrel Bisulfate 75 MG TAB PO SCH (09:16)
[2021-03-20] MEDS: Polyethylene Glycol 3350 17 GM Packet PO SCH (09:16)
[2021-03-20] MEDS: Losartan 25 MG TAB PO SCH (09:16)
[2021-03-20] MEDS: Famotidine 20 MG TAB PO SCH ×2 (09:16→20:42)
[2021-03-20] MEDS: Heparin 5,000 UNITS/ML VIAL SC SCH ×2 (09:16→20:41)
[2021-03-20 10:05] LABS: Free Thyroxine Index 3.61 (1.4-3.1); T4 11.8 ug/dL (4.87-11.72); Thyroid Stimulating Hormone 0.9999 uIU/mL (0.35-4.94)
[2021-03-20] MEDS: Atorvastatin Calcium 20 MG TAB PO SCH (20:42)
[2021-03-20] MEDS: Aspirin Chewable 81 MG TAB PO SCH (20:42)
[2021-03-20] MEDS: Donepezil HCl 5 MG TAB PO SCH (20:42)
[2021-03-21] MEDS: hydrALAZINE 20 MG/ML VIAL SLOW IVP PRN ×3 (00:07→12:47)
[2021-03-21] MEDS: cefTRIAXone\\ROCEPHIN 1 GM in Sodium Chloride 0.9% 100 ML IVPB SCH (05:19)
[2021-03-21] MEDS: Levothyroxine Sodium 100 MCG TAB PO SCH (05:20)
[2021-03-21 05:32] LABS: #Eosinphils 0.3 thou/uL (0.0-0.7); #Lymphocytes 1.3 thou/uL (1.20-3.40); #Monocytes 0.6 thou/uL (0.11-0.59); #Neutrophils 3.2 thou/uL (1.40-6.50); %Basophils 0.6 % (0.0-1.0); %Eosinophils 6.3 % (0.0-10.0); %Lymphocytes 24.1 % (21.0-51.0); %Monocytes 11.1 % (0.0-10.0); Hemoglobin 12.6 g/dL (12.0-16.0); Mean Corpuscular HGB CONC 35.1 g/dL (32.0-36.0); Mean Corpuscular Hemoglobin 33.5 pg (27.0-31.0); Mean Corpuscular Volume 95.6 fL (78.0-98.0); Mean Platelet Volume 7.8 fL (7.4-10.4); Platelet Count 203 thou/uL (130-400); RBC Distribution Width 11.4 % (11.5-14.5); Red Blood Cell (RBC) Count 3.77 mill/uL (4.20-5.40); White Blood Cell (WBC) Count 5.6 thou/uL (4.8-10.8)
[2021-03-21 05:54] LABS: Anion Gap 11 mmol/L (10-20); BUN (Urea Nitrogen) 5 mg/dL (9.8-20.1); Calc. Creatinine Clearance 59 mL/min (70-130); Calcium 8.8 mg/dL (7.8-10.44); Carbon Dioxide 20 mmol/L (23-31); Chloride 104 mmol/L (98-107); Glucose 96 mg/dL (83-110); Potassium 3.4 mmol/L (3.5-5.1); Sodium 132 mmol/L (136-145)
[2021-03-21] MEDS ORDERED: Magnesium 2 GM/50 ML 2 GM in Premix Bag 1 BAG IVPB SCH (06:45)
[2021-03-21] MEDS ORDERED: Potassium Chloride 20 MEQ TAB PO SCH (06:45)
[2021-03-21] MEDS: Heparin 5,000 UNITS/ML VIAL SC SCH ×2 (08:46→20:03)
[2021-03-21] MEDS: Polyethylene Glycol 3350 17 GM Packet PO SCH (08:46)
[2021-03-21] MEDS: Losartan 25 MG TAB PO SCH (08:46)
[2021-03-21] MEDS: Sodium Chloride 0.9% 1,000 ML IV SCH (08:47)
[2021-03-21] MEDS: Famotidine 20 MG TAB PO SCH ×2 (08:47→20:03)
[2021-03-21] MEDS: Clopidogrel Bisulfate 75 MG TAB PO SCH (08:47)
[2021-03-21] MEDS ORDERED: Amlodipine 5 MG TAB PO SCH (09:45)
[2021-03-21] MEDS: Aspirin Chewable 81 MG TAB PO SCH (20:03)
[2021-03-21] MEDS: Atorvastatin Calcium 20 MG TAB PO SCH (20:03)
[2021-03-21] MEDS: Donepezil HCl 5 MG TAB PO SCH (20:03)
[2021-03-22] MEDS: cefTRIAXone\\ROCEPHIN 1 GM in Sodium Chloride 0.9% 100 ML IVPB SCH (05:20)
[2021-03-22] MEDS: Levothyroxine Sodium 100 MCG TAB PO SCH (05:21)
[2021-03-22 08:11] VITALS: BP 174/76; TEMP 98.3
[2021-03-22] MEDS ORDERED: Amlodipine 5 MG TAB PO SCH (09:00)
[2021-03-22] MEDS: Famotidine 20 MG TAB PO SCH (09:09)
[2021-03-22] MEDS: Polyethylene Glycol 3350 17 GM Packet PO SCH (09:10)
[2021-03-22] MEDS: Losartan 25 MG TAB PO SCH (09:10)
[2021-03-22] MEDS: Heparin 5,000 UNITS/ML VIAL SC SCH (09:10)
[2021-03-22] MEDS: Clopidogrel Bisulfate 75 MG TAB PO SCH (09:10)
== END 2021-03-22 11:00 | disposition home or self-care (01) | DRG 309 ==
LOC: ERS 14:06 → 2NO 21:15
PROVIDERS: ADMIT Internal Medicine; ATTEND Internal Medicine
DX: R00.1 Bradycardia, unspecified (principal); E87.1 Hypo-osmolality and hyponatremia; I10 Essential (primary) hypertension; I48.91 Unspecified atrial fibrillation; I25.10 Atherosclerotic heart disease of native coronary artery without angina pectoris; F03.90 Unspecified dementia, unspecified severity, without behavioral disturbance, psychotic disturbance, mood disturbance, and anxiety; E03.9 Hypothyroidism, unspecified; I95.9 Hypotension, unspecified; T46.1X5A Adverse effect of calcium-channel blockers, initial encounter; Z95.1 Presence of aortocoronary bypass graft; Z88.0 Allergy status to penicillin; Z79.82 Long term (current) use of aspirin; Z79.02 Long term (current) use of antithrombotics/antiplatelets; Z90.49 Acquired absence of other specified parts of digestive tract; Z90.710 Acquired absence of both cervix and uterus; Z98.890 Other specified postprocedural states; Z90.89 Acquired absence of other organs; Z88.8 Allergy status to other drugs, medicaments and biological substances
CPT/HCPCS: 36415; 70450; 71045; 80048; 80053; 81001; 83735; 84436; 84443; 84479; 84484; 85025; 87086; 93005; 93010; 93306; J0360; J0696; J1644; J3475; J3490

== ENCOUNTER 2021-04-21 09:52 | Outpatient (CLI) | payer MEDICARE, BC | END 2021-04-21 09:53 | disposition home or self-care (01) | LOC: NM 09:52 | PROVIDERS: ATTEND Family Medicine | DX: S22.089A Unspecified fracture of T11-T12 vertebra, initial encounter for closed fracture (principal); S32.019A Unspecified fracture of first lumbar vertebra, initial encounter for closed fracture | CPT/HCPCS: 78306; A9503 ==